=== PATIENT | female | born 1995 | race African-American/Black ===

== ENCOUNTER 2017-04-22 01:45 | Emergency (ER) | payer SELFPAY ==
[~2017-04-22] VITALS: Ht 185.4 cm; Wt 150.0 kg
[~2017-04-22 01:45] MED LIST: ADVAIR 100/501 DISK IH; ALBUTEROL SULF8.5 GM IH; AZITHROMYCIN250 MG1 PO; COMBIVENT RESPIM4 GM IH; DUONEB 2.5-0.5 M3 ML IH; IMPLANON68 MG; LORADAMED10 MG PO; PREDNISONE20 MG PO; PREDNISONE50 MG PO; SINGULAIR10 MG; VALIUM2 MG PO; ZITHROMAX Z-PA250 MG PO
[2017-04-22 02:10] VITALS: BP 119/59
[2017-04-22] MEDS ORDERED: MOTRIN600 MG PO (02:56)
== END 2017-04-22 03:01 | disposition home or self-care (01) ==
LOC: EME 01:45
DX: S93.401A Sprain of unspecified ligament of right ankle, initial encounter (principal); M25.561 Pain in right knee; X50.1XXA Overexertion from prolonged static or awkward postures, initial encounter
CPT/HCPCS: 73610; 99281; 99284

== ENCOUNTER 2018-04-22 01:06 | Emergency (ER) | payer BC ==
[~2018-04-22] VITALS: Ht 185.4 cm; Wt 173.0 kg
[~2018-04-22 01:06] MED LIST changes: +MOTRIN600 MG PO
[2018-04-22 02:43] LABS: SOURCE URINE
[2018-04-22] MEDS ORDERED: DOXYCYCLINE HY100 MG PO (03:11)
[2018-04-22 03:25] VITALS: BP 138/88
[2018-04-24 15:01] LABS: CHLAMYDIA TRACHOMATIS NEGATIVE; NEISSERIA GONORRHOEAE NEGATIVE
== END 2018-04-22 03:58 | disposition home or self-care (01) ==
LOC: EME 01:06
PROVIDERS: Emergency Medicine
DX: N89.8 Other specified noninflammatory disorders of vagina (principal); R10.2 Pelvic and perineal pain; Z20.2 Contact with and (suspected) exposure to infections with a predominantly sexual mode of transmission; Z11.3 Encounter for screening for infections with a predominantly sexual mode of transmission; J45.909 Unspecified asthma, uncomplicated; F17.200 Nicotine dependence, unspecified, uncomplicated
CPT/HCPCS: 81025; 87491; 87591; 99281; 99284; J0696

== ENCOUNTER 2018-05-08 17:56 | Emergency (ER) | payer BC ==
[~2018-05-08] VITALS: Ht 185.4 cm; Wt 175.4 kg
[~2018-05-08 17:56] MED LIST changes: +DOXYCYCLINE HY100 MG PO
[2018-05-08] MEDS ORDERED: VENTOLIN HFA18 GM IH (18:05)
[2018-05-08] MEDS ORDERED: PREDNISONE20 MG PO (20:44)
[2018-05-08] MEDS ORDERED: PROVENTIL,2.5 MG/3 M IH (21:00)
[2018-05-08 21:29] VITALS: BP 121/86
== END 2018-05-08 21:30 | disposition home or self-care (01) ==
LOC: EME 17:56
DX: J45.901 Unspecified asthma with (acute) exacerbation (principal); F17.200 Nicotine dependence, unspecified, uncomplicated
CPT/HCPCS: 71046; 94640; J2930

== ENCOUNTER 2018-06-21 23:16 | Emergency (ER) | payer BC ==
[~2018-06-21] VITALS: Ht 185.4 cm; Wt 176.3 kg
[~2018-06-21 23:16] MED LIST changes: +PROVENTIL,2.5 MG/3 M IH; +VENTOLIN HFA18 GM IH
[2018-06-21 23:18] VITALS: BP 128/106
[2018-06-22] MEDS ORDERED: BENADRYL50 MG PO (02:08)
== END 2018-06-22 02:45 | disposition home or self-care (01) ==
LOC: EME 23:16
DX: G47.00 Insomnia, unspecified (principal); G25.81 Restless legs syndrome
CPT/HCPCS: 99281; 99283